=== PATIENT | female | born 1970 | race Caucasian/White ===

== ENCOUNTER 2024-06-20 08:34 | Outpatient (CLI) | payer OTHER | END 2024-06-20 08:35 | disposition home or self-care (01) | LOC: BICRAD 08:34 | PROVIDERS: ATTEND Family Medicine | DX: S89.92XA Unspecified injury of left lower leg, initial encounter (principal); M17.12 Unilateral primary osteoarthritis, left knee ==

== ENCOUNTER 2024-06-25 10:42 | Outpatient (CLI) | payer OTHER | END 2024-06-25 10:43 | disposition home or self-care (01) | LOC: BICULT 10:42 | PROVIDERS: ATTEND Family Medicine | DX: N63.12 Unspecified lump in the right breast, upper inner quadrant (principal) ==